=== PATIENT | male | born 2000 | race Hispanic/Latino ===

== ENCOUNTER 2018-06-20 17:19 | Emergency (ER) | payer OTHER, SELFPAY ==
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
[2018-06-20] MEDS ORDERED: IBUPROFEN 400 MG TAB ONE (18:14)
[2018-06-20] MEDS ORDERED: IBUPROFEN 200 MG TAB PO ONE (18:14)
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
[2018-06-20 18:47] VITALS: TEMP 97.7; O2SAT 100
[2018-06-20 18:48] VITALS: BP 110/53
== END 2018-06-20 18:19 | disposition home or self-care (01) ==
LOC: ER 17:19
DX: S80.01XA Contusion of right knee, initial encounter (principal); V49.9XXA Car occupant (driver) (passenger) injured in unspecified traffic accident, initial encounter
CPT/HCPCS: 99284